=== PATIENT | female | born 1985 | race Caucasian/White ===

== ENCOUNTER 2022-11-28 13:51 | Outpatient (CLI) | payer OTHER | END 2022-11-28 15:00 | disposition home or self-care (01) | LOC: PRENATAL 13:51 | PROVIDERS: ATTEND Obstetrics & Gynecology Maternal & Fetal Medicine | DX: O36.80X0 Pregnancy with inconclusive fetal viability, not applicable or unspecified (principal); Z3A.12 12 weeks gestation of pregnancy ==

== ENCOUNTER 2022-12-13 08:50 | Outpatient (CLI) | payer OTHER | END 2022-12-13 11:34 | disposition home or self-care (01) | LOC: PRENATAL 08:50 | PROVIDERS: ATTEND Obstetrics & Gynecology Maternal & Fetal Medicine | DX: O28.5 Abnormal chromosomal and genetic finding on antenatal screening of mother (principal) ==

== ENCOUNTER 2022-12-20 12:17 | Outpatient (CLI) | payer OTHER | END 2022-12-20 12:45 | disposition home or self-care (01) | LOC: PRENATAL 12:17 | PROVIDERS: ATTEND Obstetrics & Gynecology Maternal & Fetal Medicine | DX: Z76.1 Encounter for health supervision and care of foundling (principal) ==